=== PATIENT | female | born 2000 | race Caucasian/White ===

== ENCOUNTER 2019-01-30 16:30 | Emergency (ER) | payer OTHER ==
[~2019-01-30] VITALS: Ht 175.3 cm; Wt 72.6 kg
--- NOTE | 2019-01-30 16:30 | NUR ---
AVELINO RA83 FROM A NEAR MEDICAL OFFICE BUILDING. PT ARRIVES A/O, PT DOES NOT SPEAK AND IS COMMUNICATING BY WRITING ON PAPER. PT STATES SHE WAS WAITING FOR A THERAPY SESSION, STATES SHE HAS A HX OF SEIZURES AND HAS 2-3 BREAKTHROUGH SEIZURES A MONTH.
[2019-01-30] MEDS ORDERED: LORA-258 PO (16:46)
[2019-01-30] MEDS ORDERED: ESCI10TA PO (16:46)
[2019-01-30] MEDS ORDERED: PROP10TA10 PO (16:46)
[2019-01-30] MEDS ORDERED: LAMO200T PO (16:46)
[2019-01-30] MEDS ORDERED: GABA600T PO (16:46)
[2019-01-30 17:14] LABS: BASOPHILS # (AUTO) 0.1 K/uL (0.0-8.0); BASOPHILS % (AUTO) 0.9 % (0.0-2.0); EOSINOPHILS # (AUTO) 0.4 K/uL (0.0-0.7); EOSINOPHILS % (AUTO) 4.1 % (0.0-7.0); HEMATOCRIT 37.9 % (31.2-41.9); HEMOGLOBIN 12.4 g/dL (10.9-14.3); LYMPHOCYTES # (AUTO) 2.9 K/uL (20.0-40.0); MEAN CORPUSCULAR HEMOGLOBIN 26.1 uug (24.7-32.8); MEAN CORPUSCULAR HGB CONC 33 g/dL (32.3-35.6); MEAN CORPUSCULAR VOLUME 79.6 fL (75.5-95.3); MONOCYTES # (AUTO) 0.6 K/uL (2.0-10.0); MONOCYTES % (AUTO) 6.2 % (0-11); NEUTROPHILS # (AUTO) 5.1 K/uL (1.8-8.9); NEUTROPHILS % (AUTO) 56.8 % (31.5-64.5); PLATELET COUNT (AUTO) 329 K/uL (179-408); RED BLOOD CELL COUNT(AUTO) 4.75 MIL/uL (3.63-4.92)
[2019-01-30 17:23] LABS: CREATININE 0.8 mg/dL (0.6-1.3)
[2019-01-30 17:28] LABS: BILIRUBIN,DIRECT 0.1 mg/dL (0.0-0.2); BILIRUBIN,TOTAL 0.2 mg/dL (0.2-1.0); TOTAL PROTEIN, SERUM 7.7 g/dL (6.4-8.2)
--- NOTE | 2019-01-30 17:30 | NUR ---
Pt is A/O X 4, speaking with clear speech to her father who is at bedside.
--- NOTE | 2019-01-30 18:25 | NUR ---
Patient discharged to home in stable conditon. Written and verbal after care instructions given. Patient verbalizes understanding of instructions.PT ACCOMPANIED BY FATHER. PT SAYS FEELS GOOD. DENEIS ANY HEADACHE,DIZZINESS, NAUSEA OR ANY OTHER COMPLAIN AT THIS POINT Addendum: 01/30/19 at 1828 by [place]O PT ACCOMPANIED BY FATHER
[2019-01-30 18:27] VITALS: BP 116/57
== END 2019-01-30 18:29 | disposition home or self-care (01) ==
LOC: ER 16:33
DX: R56.9 Unspecified convulsions (principal); F41.9 Anxiety disorder, unspecified; F41.0 Panic disorder [episodic paroxysmal anxiety]; Z79.899 Other long term (current) drug therapy
CPT/HCPCS: 36415; 85025; A4663